=== PATIENT | female | born 1940 | race Caucasian/White ===

== ENCOUNTER 2022-05-18 00:27 | Inpatient (IN) | payer MEDICARE ==
[~2022-05-18] VITALS: Ht 165.1 cm; Wt 77.6 kg
[2022-05-18] MEDS ORDERED: SODIUM CHLORIDE 0.9% 500 ML IV ONE (00:45)
[2022-05-18 01:09] LABS: PROTHROMBIN TIME 10.5 SEC (9.4-11.6)
[2022-05-18 01:10] LABS: BASOPHILS % (AUTO) 0.1 % (0.0-2.0); EOSINOPHILS % (AUTO) 0 % (1.0-6.0); HEMATOCRIT 43.6 % (36-46); HEMOGLOBIN 12.9 g/dL (12.0-16.0); LYMPHOCYTES # (AUTO) 0.5 K/uL (1.0-4.8); LYMPHOCYTES % (AUTO) 9.4 % (22.0-44.0); MEAN CORPUSCULAR HEMOGLOBIN 30.9 pg (26.0-34.0); MEAN CORPUSCULAR HGB CONC 29.6 G/dL (31.0-37.0); MEAN CORPUSCULAR VOLUME 105 fL (80-100); MONOCYTES # (AUTO) 0.5 K/uL (0.1-1.0); MONOCYTES % (AUTO) 8.7 % (2.0-9.0); NEUTROPHILS # (AUTO) 4.5 K/uL (1.8-7.7); NEUTROPHILS % (AUTO) 81.8 % (40.0-70.0); PLATELET COUNT (AUTO) 197 K/uL (150-450); RED BLOOD CELL COUNT(AUTO) 4.18 MIL/uL (4.00-5.20)
[2022-05-18 01:13] LABS: ALBUMIN 2.2 g/dL (3.4-5.0); BILIRUBIN,TOTAL 0.7 mg/dL (0.1-1.0); CALCIUM, TOTAL 10.4 mg/dL (8.8-10.5); CREATININE 2.38 mg/dL (0.60-1.30); MAGNESIUM 3.4 mg/dL (1.80-2.40); PHOSPHORUS 4.8 mg/dL (2.5-4.9); TOTAL PROTEIN, SERUM 6.9 g/dL (6.4-8.2)
[2022-05-18 01:16] LABS: POTASSIUM 6.3 mmol/L (3.5-5.1)
[2022-05-18 01:18] LABS: PLATELET MORPHOLOGY COMMENT LARGE PLTS PRESENT
[2022-05-18] MEDS ORDERED: FUROSEMIDE 20 MG/2 ML VIAL IVP ONE (01:30)
[2022-05-18] MEDS ORDERED: INSULIN REGULAR, HUMAN 100 UNITS/ML IVP ONE ×2 (01:30→09:45)
[2022-05-18] MEDS ORDERED: POTASSIUM CHLORIDE 40 MEQ in SODIUM CHLORIDE 0.45% 1,000 ML IV PRN ×2 (01:30→09:45)
[2022-05-18] MEDS ORDERED: INSULIN REGULAR, HUMAN 100 UNITS in SODIUM CHLORIDE 0.9% 99 ML IV PRN ×4 (01:30→09:45)
[2022-05-18] MEDS ORDERED: CALCIUM GLUCONATE 1,000 MG in DEXTROSE 5%-WATER 50 ML IV ONE (01:30)
[2022-05-18] MEDS ORDERED: SODIUM CHLORIDE 0.9% 1,000 ML IV SCH ×2 (01:30→09:45)
[2022-05-18] MEDS ORDERED: INSULIN REGULAR, HUMAN 100 UNITS/ML IVP PRN ×2 (01:30→09:45)
[2022-05-18] MEDS ORDERED: ALBUTEROL SULFATE 5 MG/ML 20 ML NEB SOLN [BULK] NEB ONE (01:30)
[2022-05-18] MEDS ORDERED: POTASSIUM CHL 20 MEQ/0.45% NS 1,000 ML IV PRN ×2 (01:30→09:45)
[2022-05-18] MEDS ORDERED: DEXTROSE 50%-WATER 25 GM/50 ML SYRINGE IVP PRN ×3 (01:30→19:30)
[2022-05-18] MEDS ORDERED: SODIUM CHLORIDE 0.45% 1,000 ML IV PRN ×2 (01:30→09:45)
[2022-05-18] MEDS ORDERED: DEXTROSE 5%-0.45% SODIUM CHL 1,000 ML IV PRN ×2 (01:30→09:45)
[2022-05-18] MEDS ORDERED: SODIUM CHLORIDE 0.9% 1,000 ML IV ONE (01:30)
[2022-05-18 02:19] LABS: ABG BASE EXCESS -11.8 mmol/L (-2.0-3.0); ABG CARBOXYHEMOGLOBIN 0.6 % (0.0-1.5); ABG HCO3 16.2 mmol/L (22.0-26.0); ABG METHEMOGLOBIN 0.3 % (0.0-1.5); ABG OXYGEN CONTENT 17.9 mL/dL (15.0-23.0); ABG OXYGEN SATURATION 96.6 % (95.0-98.0); ABG OXYHEMOGLOBIN 95.7 % (94.0-100.0); ABG PCO2 29 mmHg (35-45); ABG PH 7.316 (7.35-7.450); ABG TOTAL HEMOGLOBIN 13.2 G/dL (12.0-18.0); PO2, ARTERIAL BG 94.6 mmHg (75.0-83.0); SOURCE, BLOOD GAS ARTERIAL; TEMPERATURE, FAHRENHEIT, BG 97.6 FAHREN (96.0-98.6)
[2022-05-18 02:20] LABS: SITE, BLOOD GAS LFT RADIAL
[2022-05-18 02:21] LABS: ABG A-A DIFF O2 100.4 mmHg (10-20.0); O2 DEVICE,BLOOD GAS CANNULA (ROOM AIR)
[2022-05-18 03:12] LABS: APPEARANCE,URINE CLEAR (CLEAR); BILIRUBIN,URINE NEGATIVE (NEGATIVE); GLUCOSE, URINE (UA) >=1000 mg/dL (NEGATIVE); LEUKOCYTE ESTERASE ,URINE NEGATIVE (NEGATIVE); NITRATE,URINE NEGATIVE (NEGATIVE); OCCULT BLOOD,URINE NEGATIVE (NEGATIVE); PROTEIN,URINE NEGATIVE (NEGATIVE); SPECIFIC GRAVITIY, URINE 1.024 (1.003-1.030); UROBILINOGEN,URINE <=1.0 mg/dL (<=1.0)
[2022-05-18 03:21] LABS: BACTERIA,URINE None Seen /HPF (None Seen); SQUAMOUS EPITHELIAL CELL,UR Few /LPF (None Seen); WBC,URINE 0-2 /HPF (0-5)
[2022-05-18 03:24] LABS: CALCIUM, TOTAL 10.3 mg/dL (8.8-10.5); CREATININE 2.47 mg/dL (0.60-1.30); POTASSIUM 4.9 mmol/L (3.5-5.1)
[2022-05-18 03:41] LABS: GLUCOMETER DEV NAME(LOC) ERT.5; GLUCOSE,POINT OF CARE > 600 MG/DL (70-110)
[2022-05-18 03:41] LABS: GLUCOMETER DEV NAME(LOC) ERT.5; GLUCOSE,POINT OF CARE > 600 MG/DL (70-110)
[2022-05-18 03:49] LABS: COVID AG,FIA SOURCE NASOPHARYNGEAL
[2022-05-18 04:12] LABS: INFLUENZA TYPE A NEGATIVE FOR TYPE A (NEGATIVE); INFLUENZA TYPE B NEGATIVE FOR TYPE B (NEGATIVE)
[2022-05-18 04:46] LABS: GLUCOMETER DEV NAME(LOC) ERT.5; GLUCOSE,POINT OF CARE > 600 MG/DL (70-110)
[2022-05-18 05:46] LABS: GLUCOMETER DEV NAME(LOC) ERT.5; GLUCOSE,POINT OF CARE > 600 MG/DL (70-110)
[2022-05-18 06:22] LABS: CALCIUM, TOTAL 9.9 mg/dL (8.8-10.5); CREATININE 2.09 mg/dL (0.60-1.30); POTASSIUM 4.9 mmol/L (3.5-5.1)
[2022-05-18] MEDS: NOREPINEPHRINE 8 MG/D5%-WATER 250 ML IV PRN (06:43)
[2022-05-18 07:56] LABS: GLUCOMETER DEV NAME(LOC) ERT.5; GLUCOSE,POINT OF CARE > 600 MG/DL (70-110)
[2022-05-18 08:10] LABS: CREATININE 2.18 mg/dL (0.60-1.30); POTASSIUM 4.2 mmol/L (3.5-5.1)
[2022-05-18 09:10] LABS: GLUCOMETER DEV NAME(LOC) ERT.5; GLUCOSE,POINT OF CARE 403 MG/DL (70-110)
[2022-05-18] MEDS ORDERED: MAGNESIUM HYDROXIDE SUSPENSION 30 ML UDCUP PO PRN (09:45)
[2022-05-18] MEDS ORDERED: ZOLPIDEM TARTRATE 5 MG TABLET PO PRN (09:45)
[2022-05-18] MEDS ORDERED: ONDANSETRON HCL 4 MG/2 ML VIAL IVP PRN (09:45)
[2022-05-18] MEDS ORDERED: BISACODYL 10 MG RECTAL RECTAL SUPPOSITORY PR PRN (09:45)
[2022-05-18] MEDS ORDERED: MORPHINE SULFATE 2 MG/ML SYRINGE IVP PRN (09:45)
[2022-05-18] MEDS ORDERED: ACETAMINOPHEN 325 MG TABLET PO PRN (09:45)
[2022-05-18] MEDS ORDERED: HYDROCODONE/ACETAMINOPHEN 5-325 MG TABLET PO PRN (09:45)
[2022-05-18 09:59] LABS: CALCIUM, TOTAL 10.2 mg/dL (8.8-10.5); CREATININE 1.72 mg/dL (0.60-1.30); POTASSIUM 4.1 mmol/L (3.5-5.1)
[2022-05-18 10:21] LABS: GLUCOMETER DEV NAME(LOC) ERT.5; GLUCOSE,POINT OF CARE 401 MG/DL (70-110)
[2022-05-18 10:28] LABS: BASOPHILS % (AUTO) 0.2 % (0.0-2.0); EOSINOPHILS % (AUTO) 0.1 % (1.0-6.0); HEMATOCRIT 41.2 % (36-46); HEMOGLOBIN 13.4 g/dL (12.0-16.0); LYMPHOCYTES # (AUTO) 0.9 K/uL (1.0-4.8); LYMPHOCYTES % (AUTO) 12.2 % (22.0-44.0); MEAN CORPUSCULAR HEMOGLOBIN 31.2 pg (26.0-34.0); MEAN CORPUSCULAR HGB CONC 32.5 G/dL (31.0-37.0); MEAN CORPUSCULAR VOLUME 96 fL (80-100); MONOCYTES # (AUTO) 0.8 K/uL (0.1-1.0); MONOCYTES % (AUTO) 11.7 % (2.0-9.0); NEUTROPHILS # (AUTO) 5.3 K/uL (1.8-7.7); NEUTROPHILS % (AUTO) 75.8 % (40.0-70.0); PLATELET COUNT (AUTO) 214 K/uL (150-450); RED CELL DISTRIBUTION WIDTH 16.5 % (11.5-14.5)
[2022-05-18 11:41] LABS: GLUCOMETER DEV NAME(LOC) ERT.5; GLUCOSE,POINT OF CARE 370 MG/DL (70-110)
[2022-05-18 12:26] LABS: GLUCOMETER DEV NAME(LOC) ERT.5; GLUCOSE,POINT OF CARE 364 MG/DL (70-110)
[2022-05-18 13:41] LABS: GLUCOMETER DEV NAME(LOC) ERT.5; GLUCOSE,POINT OF CARE 341 MG/DL (70-110)
[2022-05-18 14:19] LABS: CALCIUM, TOTAL 9.8 mg/dL (8.8-10.5); CREATININE 1.42 mg/dL (0.60-1.30); POTASSIUM 4.2 mmol/L (3.5-5.1)
[2022-05-18 14:56] LABS: GLUCOMETER DEV NAME(LOC) ERT.5; GLUCOSE,POINT OF CARE 300 MG/DL (70-110)
[2022-05-18] MEDS: HEPARIN SODIUM,PORCINE 5,000 UNITS/ML VIAL SQ SCH (16:10)
[2022-05-18 16:11] LABS: GLUCOMETER DEV NAME(LOC) ERT.5; GLUCOSE,POINT OF CARE 229 MG/DL (70-110)
[2022-05-18 17:06] LABS: GLUCOMETER DEV NAME(LOC) ERT.5; GLUCOSE,POINT OF CARE 187 MG/DL (70-110)
[2022-05-18 18:03] LABS: CALCIUM, TOTAL 9.9 mg/dL (8.8-10.5); CREATININE 1.4 mg/dL (0.60-1.30); POTASSIUM 4.5 mmol/L (3.5-5.1)
[2022-05-18 19:16] LABS: GLUCOMETER DEV NAME(LOC) ERT.5; GLUCOSE,POINT OF CARE 167 MG/DL (70-110)
[2022-05-18 19:51] LABS: GLUCOSE,POINT OF CARE 236 MG/DL (70-110)
[2022-05-18 20:00] VITALS: BP 93/65
[2022-05-18] MEDS ORDERED: INSULIN GLARGINE,HUM.REC.ANLOG 100 UNITS/ML SQ SCH (21:00)
[2022-05-18] MEDS: DOCUSATE SODIUM 100 MG CAPSULE PO SCH (21:19)
[2022-05-18] MEDS: INSULIN LISPRO 100 UNITS/ML SQ PRN (21:21)
[2022-05-18] MEDS: CefTRIAXone 1 GM/DEXTROSE 50 ML IV SCH (21:59)
[2022-05-18 22:04] LABS: CALCIUM, TOTAL 10.3 mg/dL (8.8-10.5); CREATININE 1.32 mg/dL (0.60-1.30); POTASSIUM 4.8 mmol/L (3.5-5.1)
[2022-05-18] MEDS ORDERED: SODIUM CHLORIDE 0.9% 250 ML IV ONE (22:09)
[2022-05-18] MEDS: ETHYL ALCOHOL 62% ANTISEPTIC NASAL SANITIZER 0.6 ML AMPUL NASAL SCH (23:28)
[2022-05-19] VITALS: BP 95/65
[2022-05-19] MEDS: HEPARIN SODIUM,PORCINE 5,000 UNITS/ML VIAL SQ SCH ×3 (00:18→16:09)
[2022-05-19 00:36] LABS: GLUCOSE,POINT OF CARE 274 MG/DL (70-110)
[2022-05-19 04:00] VITALS: BP 103/72
[2022-05-19] MEDS: NOREPINEPHRINE 8 MG/D5%-WATER 250 ML IV PRN (05:46)
[2022-05-19] MEDS: INSULIN LISPRO 100 UNITS/ML SQ PRN ×4 (05:55→21:41)
[2022-05-19 06:55] LABS: ALBUMIN 1.7 g/dL (3.4-5.0); BILIRUBIN,TOTAL 0.4 mg/dL (0.1-1.0); CREATININE 1.21 mg/dL (0.60-1.30); POTASSIUM 4.6 mmol/L (3.5-5.1); TOTAL PROTEIN, SERUM 6.5 g/dL (6.4-8.2)
[2022-05-19 08:00] VITALS: BP 108/69
[2022-05-19] MEDS: PANTOPRAZOLE SODIUM 40 MG DR TABLET PO SCH (08:52)
[2022-05-19] MEDS: ETHYL ALCOHOL 62% ANTISEPTIC NASAL SANITIZER 0.6 ML AMPUL NASAL SCH ×2 (08:52→21:31)
[2022-05-19] MEDS: DOCUSATE SODIUM 100 MG CAPSULE PO SCH ×2 (08:52→21:00)
[2022-05-19 09:51] LABS: GLUCOSE,POINT OF CARE 249 MG/DL (70-110)
[2022-05-19 12:00] VITALS: BP 88/59
[2022-05-19 16:00] VITALS: BP 83/53
[2022-05-19 20:00] VITALS: BP 85/53
[2022-05-19 20:51] LABS: GLUCOSE,POINT OF CARE 212 MG/DL (70-110)
[2022-05-19 20:51] LABS: GLUCOSE,POINT OF CARE 142 MG/DL (70-110)
[2022-05-19] MEDS: CefTRIAXone 1 GM/DEXTROSE 50 ML IV SCH (21:31)
[2022-05-19] MEDS: INSULIN GLARGINE,HUM.REC.ANLOG 100 UNITS/ML SQ SCH (21:40)
[2022-05-20] VITALS: BP 85/54
[2022-05-20] MEDS: HEPARIN SODIUM,PORCINE 5,000 UNITS/ML VIAL SQ SCH ×3 (00:49→16:36)
[2022-05-20 01:11] LABS: GLUCOSE,POINT OF CARE 235 MG/DL (70-110)
[2022-05-20 04:00] VITALS: BP 100/61
[2022-05-20] MEDS: INSULIN LISPRO 100 UNITS/ML SQ PRN ×5 (06:43→20:07)
[2022-05-20 08:00] VITALS: BP 101/69
[2022-05-20 08:26] LABS: GLUCOSE,POINT OF CARE 162 MG/DL (70-110)
[2022-05-20] MEDS: PANTOPRAZOLE SODIUM 40 MG DR TABLET PO SCH (08:39)
[2022-05-20] MEDS: ETHYL ALCOHOL 62% ANTISEPTIC NASAL SANITIZER 0.6 ML AMPUL NASAL SCH ×2 (08:40→20:05)
[2022-05-20] MEDS: DOCUSATE SODIUM 100 MG CAPSULE PO SCH ×2 (08:40→21:00)
[2022-05-20 12:00] VITALS: BP 98/67
[2022-05-20 16:12] VITALS: BP 104/62
[2022-05-20 19:26] VITALS: BP 104/65
[2022-05-20] MEDS: INSULIN GLARGINE,HUM.REC.ANLOG 100 UNITS/ML SQ SCH (20:06)
[2022-05-20] MEDS ORDERED: INSULIN GLARGINE,HUM.REC.ANLOG 100 UNITS/ML SQ ONE (20:30)
[2022-05-20 20:58] LABS: BASOPHILS % (AUTO) 0.5 % (0.0-2.0); EOSINOPHILS % (AUTO) 0.6 % (1.0-6.0); HEMATOCRIT 34.7 % (36-46); HEMOGLOBIN 11.2 g/dL (12.0-16.0); LYMPHOCYTES # (AUTO) 1.1 K/uL (1.0-4.8); LYMPHOCYTES % (AUTO) 15.2 % (22.0-44.0); MEAN CORPUSCULAR HEMOGLOBIN 30.4 pg (26.0-34.0); MEAN CORPUSCULAR HGB CONC 32.4 G/dL (31.0-37.0); MEAN CORPUSCULAR VOLUME 94 fL (80-100); MONOCYTES # (AUTO) 0.4 K/uL (0.1-1.0); MONOCYTES % (AUTO) 4.9 % (2.0-9.0); NEUTROPHILS # (AUTO) 5.9 K/uL (1.8-7.7); NEUTROPHILS % (AUTO) 78.8 % (40.0-70.0); PLATELET COUNT (AUTO) 171 K/uL (150-450); RED BLOOD CELL COUNT(AUTO) 3.69 MIL/uL (4.00-5.20); RED CELL DISTRIBUTION WIDTH 16.4 % (11.5-14.5)
[2022-05-20 21:14] LABS: ANION GAP 5 mmol/L (8-16); CARBON DIOXIDE 25 mmol/L (22-29); CHLORIDE 106 mmol/L (98-107); CREATININE 0.74 mg/dL (0.60-1.30); GLUCOSE,RANDOM 174 mg/dL (70-110); POTASSIUM 4.3 mmol/L (3.5-5.1); SODIUM SERUM 136 mmol/L (136-145); UREA NITROGEN, BLOOD 30 mg/dL (7-18)
[2022-05-20 21:15] LABS: GLOMERULAR FILTR. RATE CALC > 60 mL/min (>60)
[2022-05-20] MEDS: CefTRIAXone 1 GM/DEXTROSE 50 ML IV SCH (21:16)
[2022-05-20 21:21] LABS: ALANINE AMINOTRANSFERASE 19 U/L (12-78); ALBUMIN 1.4 g/dL (3.4-5.0); ALKALINE PHOSPHATASE 60 U/L (46-116); ASPARTATE AMINOTRANSFERASE 17 U/L (15-37); BILIRUBIN,TOTAL 0.4 mg/dL (0.1-1.0); TOTAL PROTEIN, SERUM 5.8 g/dL (6.4-8.2)
[2022-05-21] VITALS (7 sets, daily range): BP systolic 101–124; BP diastolic 50–79
[2022-05-21 00:01] LABS: GLUCOSE,POINT OF CARE 156 MG/DL (70-110)
[2022-05-21] MEDS: HEPARIN SODIUM,PORCINE 5,000 UNITS/ML VIAL SQ SCH ×4 (00:01→23:24)
[2022-05-21] MEDS: DOCUSATE SODIUM 100 MG CAPSULE PO SCH ×2 (08:02→21:00)
[2022-05-21] MEDS: PANTOPRAZOLE SODIUM 40 MG DR TABLET PO SCH (08:03)
[2022-05-21] MEDS: ETHYL ALCOHOL 62% ANTISEPTIC NASAL SANITIZER 0.6 ML AMPUL NASAL SCH ×2 (08:03→20:18)
[2022-05-21 08:30] LABS: ALANINE AMINOTRANSFERASE 18 U/L (12-78); ALBUMIN 1.4 g/dL (3.4-5.0); ALKALINE PHOSPHATASE 60 U/L (46-116); ANION GAP 7 mmol/L (8-16); ASPARTATE AMINOTRANSFERASE 17 U/L (15-37); BILIRUBIN,TOTAL 0.4 mg/dL (0.1-1.0); CALCIUM, TOTAL 9.3 mg/dL (8.8-10.5); CARBON DIOXIDE 25 mmol/L (22-29); CHLORIDE 109 mmol/L (98-107); CREATININE 0.58 mg/dL (0.60-1.30); GLUCOSE,RANDOM 95 mg/dL (70-110); POTASSIUM 4.2 mmol/L (3.5-5.1); SODIUM SERUM 141 mmol/L (136-145); TOTAL PROTEIN, SERUM 5.9 g/dL (6.4-8.2); UREA NITROGEN, BLOOD 21 mg/dL (7-18)
[2022-05-21 08:31] LABS: GLOMERULAR FILTR. RATE CALC > 60 mL/min (>60)
[2022-05-21 09:21] LABS: GLUCOMETER DEV NAME(LOC) 5N.1C; GLUCOSE,POINT OF CARE 124 MG/DL (70-110)
[2022-05-21 11:12] LABS: BASOPHILS % (AUTO) 0.1 % (0.0-2.0); EOSINOPHILS % (AUTO) 0.6 % (1.0-6.0); HEMATOCRIT 37.3 % (36-46); HEMOGLOBIN 12.1 g/dL (12.0-16.0); LYMPHOCYTES # (AUTO) 1.4 K/uL (1.0-4.8); LYMPHOCYTES % (AUTO) 18.3 % (22.0-44.0); MEAN CORPUSCULAR HEMOGLOBIN 30.7 pg (26.0-34.0); MEAN CORPUSCULAR HGB CONC 32.4 G/dL (31.0-37.0); MEAN CORPUSCULAR VOLUME 95 fL (80-100); MONOCYTES # (AUTO) 0.4 K/uL (0.1-1.0); NEUTROPHILS # (AUTO) 5.6 K/uL (1.8-7.7); PLATELET COUNT (AUTO) 156 K/uL (150-450); RED BLOOD CELL COUNT(AUTO) 3.94 MIL/uL (4.00-5.20); RED CELL DISTRIBUTION WIDTH 16.8 % (11.5-14.5)
[2022-05-21] MEDS: INSULIN LISPRO 100 UNITS/ML SQ PRN ×2 (13:42→20:17)
[2022-05-21 13:51] LABS: GLUCOMETER DEV NAME(LOC) 5N.1C; GLUCOSE,POINT OF CARE 165 MG/DL (70-110)
[2022-05-21] MEDS: MetroNIDAZOLE 500 MG/NACL 100 ML IV SCH ×2 (16:07→20:38)
[2022-05-21] MEDS: INSULIN GLARGINE,HUM.REC.ANLOG 100 UNITS/ML SQ SCH (20:17)
[2022-05-21] MEDS: CefTRIAXone 1 GM/DEXTROSE 50 ML IV SCH (22:02)
[2022-05-22] MEDS: MetroNIDAZOLE 500 MG/NACL 100 ML IV SCH ×3 (04:15→20:57)
[2022-05-22 04:22] VITALS: BP 95/59
[2022-05-22 06:26] LABS: GLUCOMETER DEV NAME(LOC) 5N.1C; GLUCOSE,POINT OF CARE 127 MG/DL (70-110)
[2022-05-22 06:27] LABS: GLUCOMETER DEV NAME(LOC) 5N.1C; GLUCOSE,POINT OF CARE 185 MG/DL (70-110)
[2022-05-22 06:44] LABS: BASOPHILS % (AUTO) 0.1 % (0.0-2.0); EOSINOPHILS % (AUTO) 0.9 % (1.0-6.0); HEMATOCRIT 33.3 % (36-46); HEMOGLOBIN 10.9 g/dL (12.0-16.0); LYMPHOCYTES # (AUTO) 1.5 K/uL (1.0-4.8); LYMPHOCYTES % (AUTO) 21.7 % (22.0-44.0); MEAN CORPUSCULAR HGB CONC 32.8 G/dL (31.0-37.0); MEAN CORPUSCULAR VOLUME 94 fL (80-100); MONOCYTES # (AUTO) 0.3 K/uL (0.1-1.0); MONOCYTES % (AUTO) 4.9 % (2.0-9.0); NEUTROPHILS # (AUTO) 4.9 K/uL (1.8-7.7); NEUTROPHILS % (AUTO) 72.4 % (40.0-70.0); PLATELET COUNT (AUTO) 165 K/uL (150-450); RED BLOOD CELL COUNT(AUTO) 3.53 MIL/uL (4.00-5.20); RED CELL DISTRIBUTION WIDTH 16.4 % (11.5-14.5)
[2022-05-22 07:13] LABS: ALANINE AMINOTRANSFERASE 17 U/L (12-78); ALBUMIN 1.4 g/dL (3.4-5.0); ALKALINE PHOSPHATASE 59 U/L (46-116); ANION GAP 4 mmol/L (8-16); ASPARTATE AMINOTRANSFERASE 17 U/L (15-37); BILIRUBIN,TOTAL 0.3 mg/dL (0.1-1.0); CALCIUM, TOTAL 8.9 mg/dL (8.8-10.5); CARBON DIOXIDE 27 mmol/L (22-29); CHLORIDE 103 mmol/L (98-107); CREATININE 0.68 mg/dL (0.60-1.30); GLUCOSE,RANDOM 98 mg/dL (70-110); POTASSIUM 4.1 mmol/L (3.5-5.1); SODIUM SERUM 134 mmol/L (136-145); TOTAL PROTEIN, SERUM 5.5 g/dL (6.4-8.2); UREA NITROGEN, BLOOD 17 mg/dL (7-18)
[2022-05-22 07:15] LABS: GLOMERULAR FILTR. RATE CALC > 60 mL/min (>60)
[2022-05-22 07:30] VITALS: BP 102/60
[2022-05-22] MEDS: PANTOPRAZOLE SODIUM 40 MG DR TABLET PO SCH (08:32)
[2022-05-22] MEDS: DOCUSATE SODIUM 100 MG CAPSULE PO SCH ×2 (08:32→20:56)
[2022-05-22] MEDS: HEPARIN SODIUM,PORCINE 5,000 UNITS/ML VIAL SQ SCH ×3 (08:32→22:32)
[2022-05-22] MEDS: ETHYL ALCOHOL 62% ANTISEPTIC NASAL SANITIZER 0.6 ML AMPUL NASAL SCH ×2 (08:33→20:57)
[2022-05-22] MEDS: INSULIN LISPRO 100 UNITS/ML SQ PRN ×2 (12:25→17:03)
[2022-05-22 14:39] VITALS: BP 90/60
[2022-05-22 20:23] VITALS: BP 113/69
[2022-05-22] MEDS: INSULIN GLARGINE,HUM.REC.ANLOG 100 UNITS/ML SQ SCH (20:57)
[2022-05-22 21:16] LABS: GLUCOMETER DEV NAME(LOC) 5N.1C; GLUCOSE,POINT OF CARE 126 MG/DL (70-110)
[2022-05-22] MEDS: GuaiFENesin [SUGAR-FREE] 200 MG/10 ML SOLUTION UDCUP PO PRN (21:23)
[2022-05-22] MEDS: CefTRIAXone 1 GM/DEXTROSE 50 ML IV SCH (22:32)
[2022-05-23 00:39] VITALS: BP 108/58
[2022-05-23 05:15] VITALS: BP 139/78
[2022-05-23] MEDS: GuaiFENesin [SUGAR-FREE] 200 MG/10 ML SOLUTION UDCUP PO PRN ×3 (05:52→19:54)
[2022-05-23] MEDS: MetroNIDAZOLE 500 MG/NACL 100 ML IV SCH ×3 (05:52→19:54)
[2022-05-23 06:23] LABS: BASOPHILS % (AUTO) 0.2 % (0.0-2.0); EOSINOPHILS % (AUTO) 1.4 % (1.0-6.0); HEMATOCRIT 33.2 % (36-46); HEMOGLOBIN 11.2 g/dL (12.0-16.0); LYMPHOCYTES # (AUTO) 1.5 K/uL (1.0-4.8); LYMPHOCYTES % (AUTO) 21.6 % (22.0-44.0); MEAN CORPUSCULAR HEMOGLOBIN 31.6 pg (26.0-34.0); MEAN CORPUSCULAR HGB CONC 33.8 G/dL (31.0-37.0); MEAN CORPUSCULAR VOLUME 94 fL (80-100); MONOCYTES # (AUTO) 0.3 K/uL (0.1-1.0); MONOCYTES % (AUTO) 4.7 % (2.0-9.0); NEUTROPHILS # (AUTO) 5.1 K/uL (1.8-7.7); NEUTROPHILS % (AUTO) 72.1 % (40.0-70.0); PLATELET COUNT (AUTO) 188 K/uL (150-450); RED BLOOD CELL COUNT(AUTO) 3.55 MIL/uL (4.00-5.20); RED CELL DISTRIBUTION WIDTH 16.3 % (11.5-14.5)
[2022-05-23 06:37] LABS: ALANINE AMINOTRANSFERASE 17 U/L (12-78); ALBUMIN 1.4 g/dL (3.4-5.0); ALKALINE PHOSPHATASE 57 U/L (46-116); ANION GAP 4 mmol/L (8-16); ASPARTATE AMINOTRANSFERASE 19 U/L (15-37); BILIRUBIN,TOTAL 0.3 mg/dL (0.1-1.0); CALCIUM, TOTAL 8.7 mg/dL (8.8-10.5); CARBON DIOXIDE 27 mmol/L (22-29); CHLORIDE 102 mmol/L (98-107); CREATININE 0.64 mg/dL (0.60-1.30); GLUCOSE,RANDOM 98 mg/dL (70-110); POTASSIUM 4.2 mmol/L (3.5-5.1); SODIUM SERUM 133 mmol/L (136-145); TOTAL PROTEIN, SERUM 5.5 g/dL (6.4-8.2); UREA NITROGEN, BLOOD 14 mg/dL (7-18)
[2022-05-23 06:45] LABS: GLOMERULAR FILTR. RATE CALC > 60 mL/min (>60)
[2022-05-23 07:27] VITALS: BP 112/68
[2022-05-23] MEDS: HEPARIN SODIUM,PORCINE 5,000 UNITS/ML VIAL SQ SCH ×3 (08:43→23:04)
[2022-05-23] MEDS: ETHYL ALCOHOL 62% ANTISEPTIC NASAL SANITIZER 0.6 ML AMPUL NASAL SCH ×2 (08:43→19:54)
[2022-05-23] MEDS: DOCUSATE SODIUM 100 MG CAPSULE PO SCH ×2 (09:00→19:54)
[2022-05-23 11:36] VITALS: BP 118/75
[2022-05-23] MEDS: PANTOPRAZOLE SODIUM 40 MG DR TABLET PO SCH (15:48)
[2022-05-23] MEDS: INSULIN LISPRO 100 UNITS/ML SQ PRN ×2 (17:55→19:56)
[2022-05-23] MEDS: MELATONIN 5 MG TABLET PO PRN (19:54)
[2022-05-23] MEDS: INSULIN GLARGINE,HUM.REC.ANLOG 100 UNITS/ML SQ SCH (19:56)
[2022-05-23 19:57] VITALS: BP 112/64
[2022-05-23 20:01] LABS: GLUCOMETER DEV NAME(LOC) 5N.1C; GLUCOSE,POINT OF CARE 92 MG/DL (70-110)
[2022-05-23] MEDS ORDERED: SODIUM CHLORIDE 0.9% 250 ML IV ONE (20:04)
[2022-05-23] MEDS: CefTRIAXone 1 GM/DEXTROSE 50 ML IV SCH (23:04)
[2022-05-24 00:34] VITALS: BP 102/58
[2022-05-24 04:21] VITALS: BP 98/57
[2022-05-24] MEDS: MetroNIDAZOLE 500 MG/NACL 100 ML IV SCH ×3 (05:37→21:12)
[2022-05-24 07:13] LABS: BASOPHILS % (AUTO) 0.3 % (0.0-2.0); EOSINOPHILS % (AUTO) 1.7 % (1.0-6.0); HEMATOCRIT 34.8 % (36-46); HEMOGLOBIN 11.5 g/dL (12.0-16.0); LYMPHOCYTES # (AUTO) 1.5 K/uL (1.0-4.8); LYMPHOCYTES % (AUTO) 19.2 % (22.0-44.0); MEAN CORPUSCULAR HGB CONC 32.9 G/dL (31.0-37.0); MEAN CORPUSCULAR VOLUME 94 fL (80-100); MONOCYTES # (AUTO) 0.4 K/uL (0.1-1.0); MONOCYTES % (AUTO) 4.9 % (2.0-9.0); NEUTROPHILS # (AUTO) 5.8 K/uL (1.8-7.7); NEUTROPHILS % (AUTO) 73.9 % (40.0-70.0); PLATELET COUNT (AUTO) 200 K/uL (150-450); RED BLOOD CELL COUNT(AUTO) 3.69 MIL/uL (4.00-5.20); RED CELL DISTRIBUTION WIDTH 16.1 % (11.5-14.5)
[2022-05-24 07:19] LABS: ALANINE AMINOTRANSFERASE 18 U/L (12-78); ALBUMIN 1.2 g/dL (3.4-5.0); ALKALINE PHOSPHATASE 59 U/L (46-116); ANION GAP 7 mmol/L (8-16); ASPARTATE AMINOTRANSFERASE 18 U/L (15-37); BILIRUBIN,TOTAL 0.2 mg/dL (0.1-1.0); CALCIUM, TOTAL 8.4 mg/dL (8.8-10.5); CARBON DIOXIDE 25 mmol/L (22-29); CHLORIDE 103 mmol/L (98-107); CREATININE 0.56 mg/dL (0.60-1.30); GLUCOSE,RANDOM 135 mg/dL (70-110); POTASSIUM 4.2 mmol/L (3.5-5.1); SODIUM SERUM 135 mmol/L (136-145); TOTAL PROTEIN, SERUM 5.5 g/dL (6.4-8.2); UREA NITROGEN, BLOOD 11 mg/dL (7-18)
[2022-05-24 07:24] LABS: GLOMERULAR FILTR. RATE CALC > 60 mL/min (>60)
[2022-05-24 08:07] VITALS: BP 105/58
[2022-05-24] MEDS: PANTOPRAZOLE SODIUM 40 MG DR TABLET PO SCH (08:23)
[2022-05-24] MEDS: DOCUSATE SODIUM 100 MG CAPSULE PO SCH ×2 (08:23→21:11)
[2022-05-24] MEDS: HEPARIN SODIUM,PORCINE 5,000 UNITS/ML VIAL SQ SCH ×3 (08:23→23:26)
[2022-05-24] MEDS: ETHYL ALCOHOL 62% ANTISEPTIC NASAL SANITIZER 0.6 ML AMPUL NASAL SCH ×2 (08:23→21:12)
[2022-05-24 11:31] VITALS: BP 101/65
[2022-05-24] MEDS: INSULIN LISPRO 100 UNITS/ML SQ PRN ×2 (12:10→17:38)
[2022-05-24 14:17] LABS: GLUCOMETER DEV NAME(LOC) 5S.1B; GLUCOSE,POINT OF CARE 242 MG/DL (70-110)
[2022-05-24 14:35] VITALS: BP 94/61
[2022-05-24] MEDS: GuaiFENesin [SUGAR-FREE] 200 MG/10 ML SOLUTION UDCUP PO PRN (18:24)
[2022-05-24 18:46] LABS: GLUCOMETER DEV NAME(LOC) 5N.1C; GLUCOSE,POINT OF CARE 166 MG/DL (70-110)
[2022-05-24 20:11] VITALS: BP 95/54
[2022-05-24 20:51] LABS: GLUCOMETER DEV NAME(LOC) 5N.1C; GLUCOSE,POINT OF CARE 171 MG/DL (70-110)
[2022-05-24] MEDS: MELATONIN 5 MG TABLET PO PRN (21:12)
[2022-05-24] MEDS: INSULIN GLARGINE,HUM.REC.ANLOG 100 UNITS/ML SQ SCH (21:13)
[2022-05-24] MEDS: CefTRIAXone 1 GM/DEXTROSE 50 ML IV SCH (23:26)
[2022-05-25 00:18] VITALS: BP 94/56
[2022-05-25 05:01] VITALS: BP 94/57
[2022-05-25] MEDS: MetroNIDAZOLE 500 MG/NACL 100 ML IV SCH ×2 (06:03→12:45)
[2022-05-25 07:28] LABS: BASOPHILS % (AUTO) 0.6 % (0.0-2.0); EOSINOPHILS % (AUTO) 1.3 % (1.0-6.0); HEMATOCRIT 36.2 % (36-46); HEMOGLOBIN 11.7 g/dL (12.0-16.0); LYMPHOCYTES # (AUTO) 1.5 K/uL (1.0-4.8); LYMPHOCYTES % (AUTO) 18.7 % (22.0-44.0); MEAN CORPUSCULAR HEMOGLOBIN 30.9 pg (26.0-34.0); MEAN CORPUSCULAR HGB CONC 32.2 G/dL (31.0-37.0); MEAN CORPUSCULAR VOLUME 96 fL (80-100); MONOCYTES # (AUTO) 0.4 K/uL (0.1-1.0); MONOCYTES % (AUTO) 4.6 % (2.0-9.0); NEUTROPHILS % (AUTO) 74.8 % (40.0-70.0); PLATELET COUNT (AUTO) 221 K/uL (150-450); RED BLOOD CELL COUNT(AUTO) 3.78 MIL/uL (4.00-5.20); RED CELL DISTRIBUTION WIDTH 16.7 % (11.5-14.5)
[2022-05-25 07:33] VITALS: BP 94/60
[2022-05-25 07:55] LABS: ALANINE AMINOTRANSFERASE 24 U/L (12-78); ALBUMIN 1.3 g/dL (3.4-5.0); ALKALINE PHOSPHATASE 61 U/L (46-116); ANION GAP 6 mmol/L (8-16); ASPARTATE AMINOTRANSFERASE 34 U/L (15-37); BILIRUBIN,TOTAL 0.2 mg/dL (0.1-1.0); CALCIUM, TOTAL 8.6 mg/dL (8.8-10.5); CARBON DIOXIDE 26 mmol/L (22-29); CHLORIDE 103 mmol/L (98-107); CREATININE 0.62 mg/dL (0.60-1.30); GLUCOSE,RANDOM 102 mg/dL (70-110); POTASSIUM 4.3 mmol/L (3.5-5.1); SODIUM SERUM 135 mmol/L (136-145); TOTAL PROTEIN, SERUM 5.8 g/dL (6.4-8.2); UREA NITROGEN, BLOOD 9 mg/dL (7-18)
[2022-05-25 07:57] LABS: GLOMERULAR FILTR. RATE CALC > 60 mL/min (>60)
[2022-05-25] MEDS: GuaiFENesin [SUGAR-FREE] 200 MG/10 ML SOLUTION UDCUP PO PRN (10:04)
[2022-05-25] MEDS: PANTOPRAZOLE SODIUM 40 MG DR TABLET PO SCH (10:05)
[2022-05-25] MEDS: DOCUSATE SODIUM 100 MG CAPSULE PO SCH (10:05)
[2022-05-25] MEDS: ETHYL ALCOHOL 62% ANTISEPTIC NASAL SANITIZER 0.6 ML AMPUL NASAL SCH (10:05)
[2022-05-25] MEDS: HEPARIN SODIUM,PORCINE 5,000 UNITS/ML VIAL SQ SCH (10:05)
[2022-05-25] MEDS: INSULIN LISPRO 100 UNITS/ML SQ PRN (12:08)
[2022-05-25 12:10] VITALS: BP 105/62
[2022-05-25] MEDS ORDERED: SODIUM CHLORIDE 0.9% 500 ML IV ONE (12:31)
[2022-05-25 12:41] LABS: GLUCOMETER DEV NAME(LOC) 5S.1B; GLUCOSE,POINT OF CARE 188 MG/DL (70-110)
[2022-05-25 16:06] VITALS: BP 94/55
== END 2022-05-25 16:50 | DRG 871 ==
LOC: EMS 00:27 → ICU 18:21 → 5S 05-20 15:05
PROVIDERS: ADMIT Hospitalist; ATTEND Hospitalist
PROC: 3E0F7SF Introduction of Other Gas into Respiratory Tract, Via Natural or Artificial Opening (ICD-10-PCS; principal; 2022-05-18)
DX: A41.9 Sepsis, unspecified organism (principal); E11.10 Type 2 diabetes mellitus with ketoacidosis without coma; E43 Unspecified severe protein-calorie malnutrition; J18.9 Pneumonia, unspecified organism; J96.01 Acute respiratory failure with hypoxia; N17.9 Acute kidney failure, unspecified; E86.0 Dehydration; E87.5 Hyperkalemia; I10 Essential (primary) hypertension; Z20.822 Contact with and (suspected) exposure to COVID-19; Z95.5 Presence of coronary angioplasty implant and graft; Z79.899 Other long term (current) drug therapy; Z68.28 Body mass index [BMI] 28.0-28.9, adult
CPT/HCPCS: 36245; 36569; 36600; 71045; 74230; 76937; 80048; 80053; 81001; 82009; 82550; 82805; 82962; 83036; 83735; 83880; 83930; 83935; 84100; 84484; 85025; 85610; 85730; 87040; 87081; 87804; 92526; 92610; 92611; 93005; 93306; 94644; 94667; 97110; 97162; 97166; 97530; 97535; 99291; G0378; J0610; J0696; J1644; J1815; J1940; J3480; J3490; J7040; J7050; J7060; Q9967; 36415-L1; 36415-TC